=== PATIENT | male | born 1960 | race Two or more races ===

== ENCOUNTER 2020-10-21 11:00 | Inpatient (IN) | payer OTHER ==
[~2020-10-21] VITALS: Ht 167.6 cm; Wt 106.1 kg
[2020-10-21] MEDS ORDERED: LIPOFEN150 MG PO (14:06)
[2020-10-21] MEDS ORDERED: ATACAND HCT 161 EACH PO (14:06)
[2020-10-21] MEDS ORDERED: PROBIOTIC1 EAC2 PO (14:07)
[2020-10-21] MEDS ORDERED: ADULT LOW DOSE81 M1 PO (14:07)
[2020-10-21] MEDS ORDERED: ZOCOR20 MG PO (14:07)
[2020-10-29] MEDS ORDERED: CETIRIZINE HCL10 MG (08:13)
[2020-10-29] MEDS ORDERED: MONTELUKAST SOD10 MG (08:14)
[2020-10-29] MEDS ORDERED: FENOFIBRATE160 MG (08:14)
== END 2020-10-31 20:06 | disposition home or self-care (01) | DRG 333 ==
LOC: SURH 10-28 06:10 → O/R 10-28 06:10 → SURH 10-28 11:00
PROVIDERS: ADMIT Colon & Rectal Surgery; ATTEND Colon & Rectal Surgery
PROC: 0DTP4ZZ Resection of Rectum, Percutaneous Endoscopic Approach (ICD-10-PCS; principal; 2020-10-28 17:00)
DX: K57.32 Diverticulitis of large intestine without perforation or abscess without bleeding (principal); K92.1 Melena; I10 Essential (primary) hypertension; Z20.822 Contact with and (suspected) exposure to COVID-19; R06.81 Apnea, not elsewhere classified

== ENCOUNTER 2024-07-04 05:23 | Day surgery (SDC) | payer OTHER ==
[~2024-07-04 05:23] MED LIST: ADULT LOW DOSE81 M1 PO; ATACAND HCT 161 EACH PO; CETIRIZINE HCL10 MG; FENOFIBRATE160 MG; LIPOFEN150 MG PO; MONTELUKAST SOD10 MG; PROBIOTIC1 EAC2 PO; ZOCOR20 MG PO
[2024-07-04] MEDS ORDERED: ENOXAPARIN SODIUM 40 MG/0.4 ML SYRINGE SUBCUTANEO ONE (06:58)
[2024-07-04] MEDS ORDERED: BUPIVACAINE HCL/MPF 0.5% 30ML VIAL ONE (06:59)
[2024-07-04] MEDS ORDERED: METRONIDAZOLE/SODIUM CHLORIDE 500 MG/100 ML PIGGYBACK IV ONE (07:02)
[2024-07-04] MEDS ORDERED: CEFTRIAXONE SODIUM 2,000 MG VIAL ONE (07:02)
[2024-07-04] MEDS ORDERED: SUGAMMADEX SODIUM 200 MG/2 ML VIAL IV ONE (08:48)
[2024-07-04] MEDS ORDERED: PERCOCET 5-3251 EACH PO (11:37)
[2024-07-04] MEDS ORDERED: NEURONTIN300 MG PO (11:37)
[2024-07-04] MEDS ORDERED: CELEBREX200MG PO (11:37)
[2024-07-04] MEDS ORDERED: POLY119PG PO (11:38)
== END 2024-07-04 13:31 | disposition home or self-care (01) ==
LOC: CIR.AMB 05:23
PROVIDERS: ATTEND Surgery
DX: K42.0 Umbilical hernia with obstruction, without gangrene (principal)
CPT/HCPCS: 49594; C1781